=== PATIENT | male | born 1990 | race Hispanic/Latino ===

== ENCOUNTER → 2018-02-09 | Outpatient (CLI) | payer OTHER | END | disposition home or self-care (01) | LOC: RAH 11:06 → EEVIPCON 11:06 | PROVIDERS: ATTEND Internal Medicine | DX: S62.617A Displaced fracture of proximal phalanx of left little finger, initial encounter for closed fracture (principal); X58.XXXA Exposure to other specified factors, initial encounter; Y93.89 Activity, other specified; Y92.89 Other specified places as the place of occurrence of the external cause; Y99.8 Other external cause status; M25.432 Effusion, left wrist | CPT/HCPCS: 73110; 73130 ==